=== PATIENT | male | born 1985 | race Caucasian/White ===

== ENCOUNTER 2024-05-08 21:19 | Emergency (ER) | payer OTHER ==
[~2024-05-08] VITALS: Ht 182.9 cm; Wt 89.4 kg
[2024-05-08] MEDS ORDERED: PREDNISONE20 MG PO (22:36)
[2024-05-08] MEDS ORDERED: KETOROLAC TROMETHAMINE 60 MG/2 ML VIAL IM ONE (22:45)
[2024-05-08] MEDS ORDERED: LIDOCAINE HCL 4% 1 EACH PATCH TD ONE (22:45)
[2024-05-09] MEDS ORDERED: CYCLOBENZAPRINE10 MG PO (00:18)
[2024-05-09] MEDS ORDERED: CELEBREX100 MG PO (00:18)
[2024-05-09] MEDS ORDERED: CYCLOBENZAPRINE HCL 10 MG HOME.PACK PO ONE (00:30)
[2024-05-09 01:15] VITALS: BP 112/82
== END 2024-05-09 01:15 | disposition home or self-care (01) ==
LOC: ED 21:19
DX: M51.369 Other intervertebral disc degeneration, lumbar region without mention of lumbar back pain or lower extremity pain (principal); Z79.899 Other long term (current) drug therapy
CPT/HCPCS: 72131; 96372; 99283-25; A9270; J1885